=== PATIENT | female | born 1960 | race African-American/Black ===

== ENCOUNTER 2017-08-09 10:56 | Emergency (ER) | payer OTHER ==
[~2017-08-09] VITALS: Ht 154.9 cm; Wt 62.1 kg
[~2017-08-09 10:56] MED LIST: ALBUTEROL SULF8.5 GM INH; AZITHROMYCIN250 MG ORAL; BP MED; CLINDAMYCIN HC150 MG ORAL; CYCLOBENZAPRINE10 MG ORAL; IBUPROFEN600 MG ORAL; LEVAQUIN500 MG ORAL; MEDROL DOSEPAK4 MG ORAL; NAPROSYN500 M1 ORAL; NKM; NORCO 5-325 TA1 EACH ORAL; NORCO1 E1 ORAL; SEROQUEL200 MG ORAL
[2017-08-09 11:18] VITALS: BP 126/86
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
[2017-08-09] MEDS ORDERED: Isovue-300 100ml vial INJ PRN (12:00)
[2017-08-09 12:38] LABS: BASOPHILS % (AUTO) 0.9 % (0.0-2.0); EOSINOPHILS % (AUTO) 2.1 % (0.0-3.0); HEMATOCRIT 40.4 % (37.0-47.0); HEMOGLOBIN 13.9 G/DL (12.0-16.0); LYMPHOCYTES % (AUTO) 19.6 % (20.0-45.0); MEAN CORPUSCULAR VOLUME 87 FL (80-99); MONOCYTES % (AUTO) 5.9 % (1.0-10.0); NEUTROPHILS % (AUTO) 71.5 % (45.0-75.0); PLATELET COUNT 302 K/UL (150-450); RED BLOOD COUNT 4.62 M/UL (4.20-5.40); WHITE BLOOD COUNT 8.6 K/UL (4.8-10.8)
[2017-08-09 12:38] LABS: APPEARANCE,URINE CLEAR; BILIRUBIN, URINE 1+ (NEGATIVE); GLUCOSE, URINE (UA) NEGATIVE (NEGATIVE); KETONES,URINE 1+ (NEGATIVE); LEUKOCYTE ESTERASE ,URINE 2+ (NEGATIVE); NITRITE,URINE NEGATIVE (NEGATIVE); PH,URINE 6 (4.5-8.0); PROTEIN,URINE 2+ (NEGATIVE); UROBILINOGEN,URINE 1 MG/DL (0.0-1.0)
[2017-08-09 12:45] LABS: ANION GAP 12 mmol/L (5-15); BLOOD UREA NITROGEN 14 mg/dL (7-18); CALCIUM 9.5 MG/DL (8.5-10.1); CARBON DIOXIDE 27 MMOL/L (21-32); CHLORIDE 102 MMOL/L (98-107); POTASSIUM 3.5 MMOL/L (3.5-5.1); SODIUM 140 MMOL/L (136-145)
[2017-08-09 12:50] LABS: ALANINE AMINOTRANSFERASE 14 U/L (12-78); ALBUMIN 3.5 G/DL (3.4-5.0); ALBUMIN/GLOBULIN RATIO 0.8 (1.0-2.7); ALKALINE PHOSPHATASE 100 U/L (46-116); ASPARTATE AMINO TRANSFERASE 15 U/L (15-37); BILIRUBIN,TOTAL 0.3 MG/DL (0.2-1.0)
[2017-08-09 13:02] LABS: COLOR,URINE YELLOW
[2017-08-09] MEDS ORDERED: Ketorolac 30mg Inj IV ONE (13:15)
[2017-08-09 13:18] VITALS: BP 121/78
[2017-08-09] MEDS ORDERED: Cephalexin 500mg cap ORAL ONE (13:30)
--- NOTE | 2017-08-09 13:59 | Diagnostic Imaging Report ---
EXAM: CT Abdomen and Pelvis With Intravenous Contrast CLINICAL HISTORY: ABD PAIN TECHNIQUE: Axial computed tomography images of the abdomen and pelvis with intravenous contrast. CTDI is 10.87 mGy and DLP is 525 mGy-cm. One or more of the following dose reduction techniques were used: automated exposure control, adjustment of the mA and/or kV according to patient size, use of iterative reconstruction technique. COMPARISON: No relevant prior studies available. FINDINGS: Lung bases: Patchy densities in the bilateral dependent lung bases, likely related to subsegmental atelectasis. ABDOMEN: Liver: Unremarkable. No mass. Gallbladder and bile ducts: Unremarkable. No calcified stones. No ductal dilation. Pancreas: Unremarkable. No mass. No ductal dilation. Spleen: Unremarkable. No splenomegaly. Adrenals: Unremarkable. No mass. Kidneys and ureters: Unremarkable. No solid mass. No hydronephrosis. Stomach and bowel: Mild apparent wall thickening of the transverse and descending colon is most likely related to underdistended loops. Mild fecal retention in the ascending and sigmoid colon may suggest constipation. No abnormally distended loops of small bowel. GE junction and stomach appear unremarkable. PELVIS: Appendix: The appendix is not definitively identified. Bladder: Unremarkable. No mass. Reproductive: The uterus and ovaries are not visualized and may be surgically absent. ABDOMEN and PELVIS: Intraperitoneal space: Unremarkable. No free air. No significant fluid collection. Bones/joints: No acute fracture. No dislocation. Soft tissues: Unremarkable. Vasculature: Unremarkable. No abdominal aortic aneurysm. Lymph nodes: Unremarkable. No enlarged lymph nodes. IMPRESSION: 1. Mild apparent wall thickening of the transverse and descending colon is most likely related to underdistended loops. Cannot completely exclude a mild infectious or inflammatory colitis. No adjacent inflammatory changes, free air, or fluid collections. 2. Mild fecal retention in the ascending and sigmoid colon may suggest constipation. 3. Patchy densities in the bilateral dependent lung bases, likely related to subsegmental atelectasis.
[2017-08-09] MEDS ORDERED: LACTULOSE20 GM/301 ORAL (14:03)
[2017-08-09 14:05] VITALS: BP 121/70
== END 2017-08-09 14:05 | disposition home or self-care (01) ==
LOC: EMR 12:01
DX: K59.00 Constipation, unspecified (principal); F14.10 Cocaine abuse, uncomplicated; I10 Essential (primary) hypertension; J44.9 Chronic obstructive pulmonary disease, unspecified; Z86.73 Personal history of transient ischemic attack (TIA), and cerebral infarction without residual deficits; Z90.49 Acquired absence of other specified parts of digestive tract; Z90.710 Acquired absence of both cervix and uterus
CPT/HCPCS: 36415; 74177; 80053; 80307; 81003; 83690; 85025; 85610; 85730; 86850; 86900; 86901; 96374; 96375; 99283; J1885; Q9967

== ENCOUNTER 2018-09-19 13:18 | Emergency (ER) | payer OTHER ==
[~2018-09-19] VITALS: Ht 154.9 cm; Wt 53.1 kg
[~2018-09-19 13:18] MED LIST changes: +LACTULOSE20 GM/301 ORAL
[2018-09-19 13:31] VITALS: BP 111/71
--- NOTE | 2018-09-19 13:33 | NUR ---
ED Nurse Note: Patient walked in to ER from home due to SOB and chest discomfort and Rt side of body pain 10/10 for last 3 days. Patient aao x4 and ambulatory with assist. skin clean and intact. calm and cooperative but anxious due to pain. pt is in gown and on senior it specialist. vss as documented. Rt side of body weakness present at this moment.
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
[2018-09-19 13:50] LABS: BASOPHILS % (AUTO) 0.6 % (0.0-2.0); EOSINOPHILS % (AUTO) 0.9 % (0.0-3.0); HEMATOCRIT 39.3 % (37.0-47.0); HEMOGLOBIN 12.9 G/DL (12.0-16.0); LYMPHOCYTES % (AUTO) 20.1 % (20.0-45.0); MEAN CORPUSCULAR VOLUME 89 FL (80-99); MONOCYTES % (AUTO) 7.9 % (1.0-10.0); NEUTROPHILS % (AUTO) 70.5 % (45.0-75.0); PLATELET COUNT 358 K/UL (150-450); RED BLOOD COUNT 4.41 M/UL (4.20-5.40); RED CELL DISTRIBUTION WIDTH 13.2 % (11.6-14.8); WHITE BLOOD COUNT 8.8 K/UL (4.8-10.8)
--- NOTE | 2018-09-19 13:56 | NUR ---
ED Nurse Note: pt went down for CT with a tech in stable condition.
[2018-09-19 14:09] LABS: ANION GAP 7 mmol/L (5-15); BLOOD UREA NITROGEN 10 mg/dL (7-18); CALCIUM 9.5 MG/DL (8.5-10.1); CARBON DIOXIDE 29 MMOL/L (21-32); CHLORIDE 103 MMOL/L (98-107); POTASSIUM 3.2 MMOL/L (3.5-5.1); SODIUM 139 MMOL/L (136-145)
--- NOTE | 2018-09-19 14:10 | NUR ---
ED Nurse Note: pt came back from CT in stable condition.
--- NOTE | 2018-09-19 14:22 | Diagnostic Imaging Report ---
Indication: Dyspnea Technique: One view of the chest Comparison: And 19/05/2013 Findings: There is some central bronchial wall thickening. Lungs and pleural spaces are otherwise clear. The heart size is upper limits normal. The bones are unremarkable except for minimal thoracic scoliotic deformity Impression: Mild central bronchial wall thickening, may indicate bronchitis No acute process otherwise This agrees with the preliminary interpretation provided overnight by [facility] teleradiology service.
[2018-09-19 14:28] LABS: ALANINE AMINOTRANSFERASE 12 U/L (12-78); ALBUMIN 3.7 G/DL (3.4-5.0); ALBUMIN/GLOBULIN RATIO 0.9 (1.0-2.7); ALKALINE PHOSPHATASE 119 U/L (46-116); ASPARTATE AMINO TRANSFERASE 16 U/L (15-37); BILIRUBIN,TOTAL 0.2 MG/DL (0.2-1.0); CREATINE KINASE 37 U/L (26-308)
[2018-09-19] MEDS ORDERED: LORazepam Inj 2mg/ml 1ml ONE (14:29)
[2018-09-19] MEDS ORDERED: DiphenhydrAMINE 50mg/ml Inj IVP ONE (14:30)
[2018-09-19] MEDS ORDERED: LORazepam Inj 2mg/ml 1ml IV ONE (14:30)
[2018-09-19] MEDS ORDERED: Isovue-300 100ml vial INJ PRN (14:30)
--- NOTE | 2018-09-19 14:30 | NUR ---
ED Nurse Note: pt signed on consent for CT with contrast with fully understanding.
--- NOTE | 2018-09-19 14:31 | Diagnostic Imaging Report ---
Clinical Indication: Chest pain Technique: Spiral acquisitions obtained through the chest. No IV contrast utilized, reason not stated. Multiplanar reconstructions generated. Total dose length product 533.62 mGycm. CTDIvol(s) 18.33 mGy. Dose reduction achieved using automated exposure control Comparison: none Findings: Linear bands of scarring or atelectasis are seen at both lung bases. There is some posterior dependent atelectatic change at both lung bases. There is hyperinflation and both lung apices. Tiny bullae are present bilaterally. There is some interstitial septal thickening of the upper lobes bilaterally. There is a 3 mm diameter nodular opacity in the lateral left upper lobe, image 19 of series 5. No dense consolidation. No effusions. No masses. A tiny calcification is seen at the pleural surface of the right middle lobe medially. The heart size is normal. There is minimal anterior wall pericardial thickening versus fluid. There is a small hiatal hernia. The esophagus is otherwise unremarkable. No mediastinal or hilar mass or adenopathy. The included portion of the thyroid is unremarkable. No axillary or chest wall mass or adenopathy. The bones demonstrate degenerative thoracic spondylosis changes. The included upper abdominal anatomy is unremarkable. Impression: COPD changes Bilateral basilar scarring and/or atelectasis No definite acute abnormality The above findings are in agreement with the [facility] preliminary report 3 mm nodular opacity left upper lobe. If there is significant smoking history or other risk factors for lung carcinoma, short interval follow-up CT at 6-12 months is recommended. This finding was not reported on the [facility] preliminary report. Discrepant findings reported to Dr. Jett in the emergency room at the time of interpretation The CT scanner at [facility] is accredited by the [employer] and the scans are performed using protocols designed to limit radiation exposure to as low as reasonably achievable to attain images of sufficient resolution adequate for diagnostic evaluation.
--- NOTE | 2018-09-19 14:39 | Diagnostic Imaging Report ---
Indications: Pain and headache Technique: Spiral acquisitions obtained through the brain. Angled axial and coronal 5 x 5 mm slices were reconstructed. Total dose length product 1354.8 mGycm. CTDI vol(s) 70.38 mGy. Dose reduction achieved using automated exposure control Comparison: None. Findings: No acute intercranial hemorrhage or edema, mass effect, nor midline shift. Normal castillo-white differentiation. Normal-sized ventricles and extra axial CSF spaces. There is minimal periventricular deep white matter low-attenuation consistent with chronic microvascular ischemic change. The calvarium is intact. There is equivocal minimal right mastoid opacification. The visualized sinuses are clear. The orbits are unremarkable. Impression: Minimal periventricular deep white matter low-attenuation, consistent with chronic microvascular ischemic change Negative for acute intracranial bleed or mass effect This agrees with the preliminary interpretation provided overnight by [facility]. The CT scanner at [facility] [place] is accredited by the [employer] and the scans are performed using protocols designed to limit radiation exposure to as low as reasonably achievable to attain images of sufficient resolution adequate for diagnostic evaluation.
--- NOTE | 2018-09-19 14:49 | NUR ---
ED Nurse Note: pt went down for CT with contrast with a tech in stable condition.
--- NOTE | 2018-09-19 15:01 | NUR ---
ED Nurse Note: pt came back from CT in stable condition.
[2018-09-19 15:30] VITALS: BP 119/75
--- NOTE | 2018-09-19 15:33 | Diagnostic Imaging Report ---
Clinical Indication: Chest pain Technique: IV administration nonionic contrast. Spiral acquisition obtained through the chest. Multiplanar reconstructions generated. Total dose length product 482.87 mGycm. CTDIvol(s) 14.61 mGy. Dose reduction achieved using automated exposure control Comparison: Noncontrast study performed 50 minutes earlier Findings: Again demonstrated is emphysematous changes of the bilateral upper lobes with small bullae. Again demonstrated is a nodule in the lateral left upper lobe, measuring 4 mm diameter on the current study. Again demonstrated are atelectatic changes and possible scarring at the lung bases. Medial pleural base calcification is seen in the right middle lobe. No infiltrates, effusions, or masses. Previously demonstrated hiatal hernia is less evident on the current exam. The heart size is normal. No mediastinal or hilar mass or adenopathy. The included portion of the thyroid is unremarkable. No axillary or chest wall mass or adenopathy demonstrated. There is minimal anterior Arterial thickening versus fluid No evidence of thoracic aortic aneurysm or dissection demonstrated. Exam was not protocoled for exclusion of pulmonary embolus, but no post evidence of such demonstrated. Included upper abdominal anatomy is unremarkable except for a small accessory splenule. Impression: No new findings from previous study of one hour earlier COPD changes 4 mm left upper lobe nodule again demonstrated. Recommend short interval follow-up CT in 6-12 months if there are significant risk factors for lung carcinoma Minimal anterior wall pericardial thickening versus fluid This agrees with the preliminary interpretation provided overnight by [facility]. The CT scanner at [facility] [place] is accredited by the [employer] and the scans are performed using protocols designed to limit radiation exposure to as low as reasonably achievable to attain images of sufficient resolution adequate for diagnostic evaluation.
[2018-09-19] MEDS ORDERED: ALBUTEROL SULF8.5 GM INH (16:12)
[2018-09-19] MEDS ORDERED: ROBAXIN-750750 MG PO (16:12)
[2018-09-19] MEDS ORDERED: IBUPROFEN600 MG ORAL (16:12)
[2018-09-19] MEDS ORDERED: Methocarbamol 750mg tab ORAL ONE (16:15)
[2018-09-19 16:30] VITALS: BP 124/78
--- NOTE | 2018-09-19 16:30 | NUR ---
ER DISCHARGE NOTE: Patient is cleared to be discharged per ERPA after discussing exams results, pt is aox4, on room air, with stable vital signs. pt was given dc and prescription instructions, pt was able to verbalize understanding, pt id band and iv site removed without complications. pt was assisted with WC and son is driving. pt took all belongings.
--- NOTE | 2018-09-20 21:05 | Cardiology Report ---
APPROVED REPORT EKG Measurement Heart [id number] Normal sinus rhythm Normal ECG
== END 2018-09-19 16:30 | disposition home or self-care (01) ==
LOC: EMR 13:38
DX: M62.838 Other muscle spasm (principal); J20.9 Acute bronchitis, unspecified; F14.10 Cocaine abuse, uncomplicated; G47.00 Insomnia, unspecified; I10 Essential (primary) hypertension; Z86.73 Personal history of transient ischemic attack (TIA), and cerebral infarction without residual deficits; J44.9 Chronic obstructive pulmonary disease, unspecified; R91.1 Solitary pulmonary nodule
CPT/HCPCS: 36415; 70450; 71045; 71250; 71260; 80053; 80307; 82550; 83880; 84484; 85025; 85610; 85730; 93005; 96374; 96375; 99284; J1200; Q9967